=== PATIENT | male | born 1960 | race Caucasian/White ===

== ENCOUNTER → 2020-12-12 16:42 | Outpatient (CLI) | payer OTHER, BC, SELFPAY ==
[2020-12-12 19:30] LABS: Prostate Specific Antigen Scrn < 0.064 ng/mL (0.1-4.0)
== END ==
PROVIDERS: Referring Provider Specialist; Visit Provider Specialist
DX: C61 Malignant neoplasm of prostate (principal); Z12.5 Encounter for screening for malignant neoplasm of prostate; N52.2 Drug-induced erectile dysfunction; Z87.898 Personal history of other specified conditions; Z87.440 Personal history of urinary (tract) infections
CPT/HCPCS: 36415; 51798; 81002; 96402; 99214; G0103; J9217

== ENCOUNTER → 2021-06-06 14:19 | Outpatient (CLI) | payer OTHER, BC, SELFPAY ==
[2021-06-06 16:10] LABS: Prostate Specific Antigen Scrn 0.292 ng/mL (0.1-4.0)
== END ==
PROVIDERS: Referring Provider Specialist; Visit Provider Specialist
DX: C61 Malignant neoplasm of prostate (principal); Z12.5 Encounter for screening for malignant neoplasm of prostate
CPT/HCPCS: 36415; G0103

== ENCOUNTER → 2021-09-07 16:08 | Outpatient (CLI) | payer OTHER, BC, SELFPAY ==
[2021-09-07 18:09] LABS: Prostate Specific Antigen 1.32 ng/mL (0.10-4.00)
== END ==
PROVIDERS: Referring Provider Specialist; Visit Provider Specialist
DX: Z85.46 Personal history of malignant neoplasm of prostate (principal)
CPT/HCPCS: 36415; 84153

== ENCOUNTER → 2021-10-05 14:35 | Outpatient (CLI) | payer OTHER, BC, SELFPAY ==
--- NOTE | 2021-10-05 14:37 | DI.RAD.S_ITS ---
PROCEDURE: XR DEXA AXIAL SKELETON INDICATIONS: Prostate CA COMPARISON: None. FINDINGS: This blank DEXA report has been sent in error by the PACS system. The correct and complete report will be forthcoming in 1-2 days. Thank you for your patience and understanding. Dictated by: Stacia Whalen MD, PhD on 10/06/2021 at 7:42 Approved by: Stacia Whalen MD, PhD on 10/06/2021 at 7:43
[2021-10-05 16:28] LABS: Prostate Specific Antigen 1.42 ng/mL (0.10-4.00)
== END ==
PROVIDERS: Referring Provider Specialist; Visit Provider Specialist
DX: C61 Malignant neoplasm of prostate (principal); R97.20 Elevated prostate specific antigen [PSA]; M85.852 Other specified disorders of bone density and structure, left thigh
CPT/HCPCS: 36415; 77080; 84153

== ENCOUNTER → 2021-10-11 15:16 | Outpatient (CLI) | payer OTHER, BC, SELFPAY ==
[2021-10-11 17:06] LABS: BUN Creatinine Ratio 15.6 (6-22); Blood Urea Nitrogen 23 mg/dL (9-20); Calcium 9.7 mg/dL (8.4-10.2); Carbon Dioxide 31 mmol/L (22-32); Chloride 105 mmol/L (98-107); Estimated Glomerular Filt Rate 48.4 mL/min (>60); Glucose 96 mg/dL (80-110); HEMOLYSIS < 15 (0-50); Potassium 4.4 mmol/L (3.4-5.1); Sodium 140 mmol/L (137-145)
== END ==
PROVIDERS: Referring Provider Specialist; Visit Provider Specialist
DX: N40.0 Benign prostatic hyperplasia without lower urinary tract symptoms (principal)
CPT/HCPCS: 36415; 80048

== ENCOUNTER → 2021-10-23 12:59 | Outpatient (CLI) | payer OTHER, BC, SELFPAY ==
--- NOTE | 2021-10-23 13:13 | DI.CT.S_ITS ---
PROCEDURE: CT ABDOMEN PELVIS WO/W CON INDICATIONS: prostate cancer TECHNIQUE: Optional 5 mm thick noncontrast images acquired from the diaphragm to the symphysis pubis. After the administration of intravenous contrast, 5 mm thick images acquired from the diaphragm to the symphysis pubis after a 10-minute delay. 2 mm thick coronal and sagittal reformats were then performed of the kidneys and ureters. For radiation dose reduction, the following was used: automated exposure control, adjustment of mA and/or kV according to patient size. COMPARISON: [facility], CT, CT CHEST ABDOMEN PELVIS WITH CONTRAST, 09/25/2018, 17:24. FINDINGS: Image quality: Excellent. Lung bases: Lung bases are clear. Heart size is normal. Urinary system: Both kidneys are normal in size, without hydronephrosis or nephrolithiasis on pre-contrast images. No perinephric fat stranding. There is normal bilateral renal enhancement. Renal calyces appear normal in morphology when filled with contrast. Opacified portions of both ureters demonstrate normal caliber. Urinary bladder is decompressed and appears moderately diffusely thickened. Other solid organs: Diffusely decreased hepatic density is present. Liver is diffusely enlarged. No focal mass. Gallbladder is decompressed . Biliary system is non dilated. Pancreas enhances normally. Spleen is normal in size and enhancement. No adrenal nodules. Peritoneum and bowel: Small hiatal hernia. Bowel loops demonstrate normal wall thickness and caliber. No free fluid or air. Normal appendix. Nodes and vessels: No retroperitoneal or mesenteric adenopathy by size criteria. Aorta and inferior vena cava are normal in size. Abdominal wall: No ventral hernias. Pelvis: No pathologic free pelvic fluid. No inguinal hernias or adenopathy. Bones: No suspicious bony lesions. No vertebral body compression fractures. IMPRESSION: 1. No evidence of malignancy. 2. No evidence of urinary tract calcification, nor obstruction. 3. Diffuse urinary bladder thickening, possibly indicating infection or inflammation. 4. Hepatic steatosis. Dictated by: Grant Ceballos M.D. on 10/23/2021 at 15:35 Approved by: Grant Ceballos M.D. on 10/23/2021 at 16:39
== END ==
PROVIDERS: Referring Provider Specialist; Visit Provider Specialist
DX: C61 Malignant neoplasm of prostate (principal); K76.0 Fatty (change of) liver, not elsewhere classified
CPT/HCPCS: 74178

== ENCOUNTER → 2021-11-09 09:08 | Outpatient (CLI) | payer OTHER, BC, SELFPAY ==
--- NOTE | 2021-11-09 09:11 | DI.NM.S_ITS ---
PROCEDURE: [place] BONE SCAN WHOLE BODY RADIOPHARMACEUTICAL: 19.5 mCi Tc-99m MDP IV. INDICATIONS: prostate cancer TECHNIQUE: Delayed whole-body scintigrams were obtained approximately 3-4 hours after intravenous injection of radiotracer. Anterior and posterior views were acquired from vertex to feet. Additional left and right oblique views of the pelvis were obtained. COMPARISON: [facility], CT, CT CHEST ABDOMEN PELVIS WITH CONTRAST, 09/25/2018, 17:24. [facility], CT, CT TRAN, 04/26/2019, 12:58. [facility], NM, NM BONE SCAN WHOLE BODY, 10/01/2018, 14:29. [facility], MR, MR PELVIS PROSTATE RADIATION TREATMENT PROTOCOL, 04/26/2019, 14:50. [facility], CT, CT ABDOMEN PELVIS WO/W CON, 10/23/2021, 13:17. FINDINGS: Physiologic uptake is noted within the kidneys and bladder. There is marked increased uptake within the knees, right greater than left as well as the feet most notably the left ankle. Previous focus of uptake within the left 4th rib is unchanged. It is noted this area corresponded to lucency on prior CT exam. There is a focus of increased uptake within the midportion of the T6 vertebral body. No abnormality is identified on the 2019 CT exam. No recent priors are available for review. There is also a focus of punctate increased uptake along the anterior left 9th rib no visualized abnormality is present within this region on CT exam of 10/03/2021. IMPRESSION: Unchanged uptake within the left 4th rib compared to prior exam. New uptake within the mid T6 vertebral body. No recent imaging is available for comparison of this area. X-ray or CT is recommended for further evaluation. Punctate left 8th rib uptake without corresponding abnormality on recent CT. Recommend correlation of possible recent trauma. Prominent degenerative changes within the left knee and right ankle. Dictated by: Roselyn Wallis M.D. on 11/09/2021 at 15:30 Approved by: Roselyn Wallis M.D. on 11/09/2021 at 15:35
== END ==
PROVIDERS: Referring Provider Specialist; Visit Provider Specialist
DX: C61 Malignant neoplasm of prostate (principal)
CPT/HCPCS: 78306; A9503

== ENCOUNTER → 2021-11-12 16:38 | Outpatient (CLI) | payer OTHER, BC, SELFPAY ==
[2021-11-12 18:12] LABS: Prostate Specific Antigen 2.29 ng/mL (0.10-4.00)
== END ==
PROVIDERS: Referring Provider Specialist; Visit Provider Specialist
DX: N40.0 Benign prostatic hyperplasia without lower urinary tract symptoms (principal)
CPT/HCPCS: 36415; 84153

== ENCOUNTER → 2022-02-28 16:43 | Outpatient (CLI) | payer OTHER, BC, SELFPAY ==
[2022-02-28 17:48] LABS: Prostate Specific Antigen 7.18 ng/mL (0.10-4.00)
== END ==
PROVIDERS: Referring Provider Specialist; Visit Provider Specialist
DX: R97.20 Elevated prostate specific antigen [PSA] (principal)
CPT/HCPCS: 36415; 84153